=== PATIENT | female | born 1935 | race Asian ===

== ENCOUNTER 2023-04-15 22:55 | Emergency (ER) | payer MEDICARE, MEDICAID ==
[~2023-04-15] VITALS: Ht 137.2 cm; Wt 36.3 kg
[2023-04-15 23:57] VITALS: BP 136/67
--- NOTE | 2023-04-16 02:02 | NUR ---
[facility] PER ADMITING
== END 2023-04-16 02:02 | disposition left against medical advice (07) ==
LOC: MED 22:55
DX: R21 Rash and other nonspecific skin eruption (principal); Z53.21 Procedure and treatment not carried out due to patient leaving prior to being seen by health care provider
CPT/HCPCS: 99281